=== PATIENT | male | born 1955 | race Caucasian/White ===

== ENCOUNTER 2019-02-19 06:42 | Emergency (ER) | payer BC ==
--- NOTE | 2019-02-19 07:10 | ED.PDOC ---
History of Present Illness - General Time Seen by Provider: 02/19/19 06:51 Source: patient - History of Present Illness Initial Comments: 63 yo male with no reported PMH who presents with cc inability to urinate. Reports drank some beer last night and around 11 pm had the urge to urinate. Was unable to, however, whenever he tried. He drank a couple cups of coffee overnight thinking it may help but it didn't. Reports then began getting more frequent urges and suprapubic pressure-like pains but still unable to void. Sx's became severe and pt rushed to the ED for eval. Denies any fevers, chills, n/v/d, or other systemic sx's. Pt does report hx of urinary urgency sx's with near-incontinence for several years now but no hx of inability to urinate like today. He lives in [place] and his PCP is there as well. Allergies/Adverse Reactions: Allergies Carbamazepine [From Tegretol] Allergy (Verified 02/19/19 06:58) Review of Systems - Review of Systems Review of Systems: 02/19/19 07:10 as per HPI All other Systems: Reviewed and Negative Past Medical History (General) - Patient Medical History Hx Seizures: No Hx Stroke: No Hx Dementia: No Hx Asthma: No Hx of COPD: No Hx Cardiac Disorders: No Hx Congestive Heart Failure: No Hx Pacemaker: No Hx Hypertension: No Hx Thyroid Disease: No Hx Diabetes: Yes - diet controlled? Hx Gastroesophageal Reflux: No Hx Renal Disease: No Hx Cancer: No Hx of HIV: No Hx Hepatitis C: No Hx MRSA: No Surgical History: other - Vaccination History Hx Tetanus, Diphtheria Vaccination: No Hx Influenza Vaccination: Yes Hx Pneumococcal Vaccination: No Immunizations Up to Date: Yes - Social History Hx Tobacco Use: No Hx Chewing Tobacco Use: No Hx Alcohol Use: Yes Hx Substance Use: No Hx Substance Use Treatment: No Hx Depression: No Feels Threatened In Home Enviroment: No Feels Threatened In a Relationship: No Hx Physical Abuse: No Hx Emotional Abuse: No Hx Suspected Abuse: No - Activities of Daily Living Hospice Agency (if applicable):: None - Female History Patient is a Female of Child Bearing Age (10 -59 yrs old): No Family Medical History - Family History Mother Family History: Unknown Physical Exam - Physical Exam General Appearance: Alert, Anxious, Obvious distress Eyes, Ears, Nose, Throat Exam: PERRL/EOMI, normal ENT inspection Neck: non-tender, full range of motion, supple Cardiovascular/Respiratory: regular rate, rhythm, no M/R/G, normal peripheral pulses, normal breath sounds, no respiratory distress Gastrointestinal/Abdominal: non tender, soft Male Genital Exam: normal genitalia Back Exam: normal inspection, no CVA tenderness Extremity: normal range of motion, non-tender, normal inspection, no pedal edema, no calf tenderness, normal capillary refill Neurologic: no motor/sensory deficits, alert, normal mood/affect, oriented x 3 Skin Exam: normal color, warm/dry Progress - Progress Progress: 02/19/19 07:11 Urinary outflow obstruction -appears due to prostate enlargement. Nurses were able to place jeffery with some resistance at the level of the prostate but then with large UOP once into the bladder (>1200 cc immediately slightly cloudy urine) and immediate relief of all symptoms. Consider also UTI/prostatitis -will check UA -pt otherwise stable -discussed will need to leave in Jeffery and pt will need to f/u with urology in next 2-4 weeks as outpatient for further management 02/19/19 07:19 -Dr. Harrington to f/u UA to see if Abx are indicated. Otherwise pt will be discharged to home in good condition. Shant Ac MD Billing #[id number] 02/19/19 07:20 Departure - Departure Clinical Impression: Enlarged prostate with urinary obstruction Time of Disposition: 07:14 Disposition: Discharge to Home or Self Care Condition: Good Instructions: Urinary Obstruction (DC) Diet: resume usual diet Referrals: Anuradha Santos MD [Referring] - 1-2 Weeks CODY FULTON MD [Referring] - 1-2 Weeks Additional Instructions: Jeffery should only be removed by medical staff. Attempting removal at home can be dangerous and cause injury to the urinary outflow tract. Keep the tip of the penis protected with vaseline applied 2-3 times daily to prevent rubbing the skin raw at the site and causing infection. Follow up with your primary care doctor in 1-2 weeks and with urology in 2-4 weeks. Addendum entered and electronically signed by Anthony Harrington MD 02/19/19 07:48: Departure - Departure Clinical Impression: Enlarged prostate with urinary obstruction Disposition: Discharge to Home or Self Care Condition: Good Instructions: Urinary Obstruction (DC) Diet: regular diet Activity: increase activity as tolerated Referrals: Anuradha Santos MD [Referring] - 1-2 Weeks CODY FULTON MD [Referring] - 1-2 Weeks Additional Instructions: Jeffery should only be removed by medical staff. Attempting removal at home can be dangerous and cause injury to the urinary outflow tract. Keep the tip of the penis protected with vaseline applied 2-3 times daily to prevent rubbing the skin raw at the site and causing infection. Follow up with your primary care doctor in 1-2 weeks and with urology in 2-4 weeks. ED Addendum - ED Addendum Addendum: 02/19/19 06:58 Catheter:Jeffery ONCE Laboratory Results - last 24 hr 02/19/19 07:00 Urine Color Yellow Urine Appearance Sl cloudy Urine pH 5.5 Ur Specific [place] 1.020 Urine Protein Negative Urine Glucose (UA) Negative Urine Ketones Negative Urine Blood Small H Urine Nitrite Negative Urine Bilirubin Negative Urine Urobilinogen 0.2 Ur Leukocyte Esterase Negative Urine RBC 0 Urine WBC 0 Ur Epithelial Cells 0 Urine Bacteria 0
[2019-02-19 07:11] VITALS: O2SAT 95
[2019-02-19 08:13] VITALS: BP 188/94; TEMP 97.2
== END 2019-02-19 08:02 | disposition home or self-care (01) ==
LOC: ER 06:42
DX: N40.1 Benign prostatic hyperplasia with lower urinary tract symptoms (principal); N13.8 Other obstructive and reflux uropathy; E11.9 Type 2 diabetes mellitus without complications; Z88.8 Allergy status to other drugs, medicaments and biological substances